=== PATIENT | female | born 1975 | race Two or more races ===

== ENCOUNTER 2018-10-09 11:16 | Inpatient (IN) | payer OTHER ==
[~2018-10-09] VITALS: Ht 165.1 cm; Wt 67.8 kg
[2018-10-09] MEDS ORDERED: NITROGLYCERIN 0.4 MG SL TAB SL PRN (12:15)
[2018-10-09] MEDS ORDERED: MORPHINE SULF INJ 2 MG/ML SYRINGE 1ML IV PRN (12:15)
[2018-10-09] MEDS ORDERED: ONDANSETRON HCL 4 MG/2 ML VIAL IV PRN (12:15)
[2018-10-09] MEDS ORDERED: ENOXAPARIN SOD 30 MG/0.3 ML SYRINGE SC ONE (12:45)
[2018-10-09] MEDS: MORPHINE SULFATE 4 MG/ML SYR/VIAL IV PRN (13:25)
[2018-10-09 13:46] LABS: Basophils # (auto) 0 uL; Basophils % (auto) 0.5 % (0.0-2.0); Eosinophils # (auto) 0 uL; Eosinophils % (auto) 0.1 % (0.0-7.0); Hematocrit 42.1 % (36.0-46.0); Hemoglobin 14.3 g/dL (12.2-16.2); Lymphocytes # (auto) 1.5 uL; Mean Corpuscular Hemoglobin 28.4 pg (28.0-32.0); Mean Corpuscular Volume 83.3 fL (80.0-100.0); Monocytes # (auto) 0.5 uL; Monocytes % (auto) 5.7 % (0.0-12.0); Neutrophils # (auto) 6.7 uL; Neutrophils % (auto) 76.7 % (37.0-80.0); Nucleated Red Blood Cells % 0.1 %; Platelet Count (auto) 201 10^3/uL (140-450); Red Blood Cells 5.05 10^6/uL (4.0-5.20); Red Cell Distribution Width 12.5 % (11.8-14.3); White Blood Cell 8.7 10^3/uL (4.4-10.8)
[2018-10-09 14:00] LABS: Albumin 4.1 g/dL (3.4-5.0); BUN/Creatinine Ratio 13.6; Calcium 8.7 mg/dL (8.5-10.1); Potassium 4.1 mmol/L (3.5-5.1)
[2018-10-09 14:02] LABS: Bilirubin, Total 0.6 mg/dL (0.2-1.0); Total Protein 7.6 g/dL (6.4-8.2)
[2018-10-09 14:07] LABS: INR 1.02 (0.9-1.15); Partial Thromboplastin Time 28.2 sec (23.64-32.05)
[2018-10-09 15:47] VITALS: BP 100/68
--- NOTE | 2018-10-09 16:20 | NUR ---
NON-VIOLENT OFFENDER- NO OFFICER PRESENT RECEIVED NOTICE THAT THE PATIENT WAS A LOW LEVEL/NON-VIOLENT OFFENDER AND THE FACILITY HAS REMOVE THE SECURITY FROM THE PATIENTS ROOM. THE PATIENT IS TO CALL AND CHECK IN TO THE FACILITY AT 0700 AND 1900 DURING HER STAY. UPON DISCHARGE, THE FACILITY WILL SEND OFFICERS TO PICK THE PATIENT UP AND TAKE HER BACK TO THE FACILITY. PAP[facility] WORK PL[facility] IN THE PATIENTS CHART. [employer] ATTENDANT NOTIFIED.
--- NOTE | 2018-10-09 16:50 | NUR ---
MED/SURG admit from [facility] admitted to MED/SURG unit after SBAR received. Patient oriented to KAMLA EVANS RN primary RN, unit, room, bed, and unit policies regarding patient care and visiting hours. Pt rates pain at a 4/10 but denies the need for pain medications. No s/s of distress or SOB. Encouraged to call if they need something. All questions and concerns addressed, patient verbalized understanding. Addendum: 10/09/18 at 1805 by KAMLA EVANS RN RN INCORRECT TIME. PATIENT ARRIVED TO FLOOR AT 1550
[2018-10-09 17:00] VITALS: BP 107/64
--- NOTE | 2018-10-09 19:30 | NUR ---
Opening shift note Patient in bed watching tv alert and oriented x 4, verbally coherent able to make needs known. Patient's respiration even and unlabored, denies pain or any discomfort at this time. Plan of care discussed, patient verbalized understanding. All needs attended, will continue to monitor.
--- NOTE | 2018-10-09 20:54 | NUR ---
UA sample obtained, sent to lab via bullet.
--- NOTE | 2018-10-09 21:07 | NUR ---
Received report from CAITLYN Dey and assumed care of patient. Patient awake , alert and oriented. No s/s of distress and pain at this time. Instructed patient to call for assist if needed and verbalized understanding. Will continue to monitor.
--- NOTE | 2018-10-09 21:15 | NUR ---
Received instruction from charge nurse, transfer patient from room 285B to 236. Patient transferred via gurney/ bed with 2 assist. Report given to nurse. Patient in stable condition.
[2018-10-09 21:30] VITALS: BP 103/60
[2018-10-09 21:56] VITALS: BP 95/64
[2018-10-09] MEDS: ZOLPIDEM TARTRATE 5 MG TAB PO SCH (22:14)
--- NOTE | 2018-10-10 01:25 | NUR ---
Rounds: Patient seen sleeping , appears not in pain. RR even and unlabored.Will continue to monitor.
[2018-10-10 05:44] VITALS: BP 102/66
--- NOTE | 2018-10-10 06:00 | NUR ---
Patient assisted to bedside commode.
[2018-10-10] MEDS: MORPHINE SULFATE 4 MG/ML SYR/VIAL IV PRN (06:30)
--- NOTE | 2018-10-10 07:30 | NUR ---
Opening Shift Note Assumed care of patient, awake and alert. No S/S of distress/SOB. Pain management discussed with patient. Instructed on POC and to call for assist PRN, will continue to monitor for changes Q1hr and PRN.
[2018-10-10 08:00] VITALS: BP 97/69
--- NOTE | 2018-10-10 08:45 | NUR ---
PATIENT OF UNIT TO PROCEDURE.
[2018-10-10] MEDS ORDERED: ceFAZolin 1GM/50ML 50 ML IV ONE ×2 (08:54→09:34)
[2018-10-10] MEDS ORDERED: MEPERIDINE HCL (25 MG/ML) 1ML VIAL ONE ×2 (09:36→10:15)
[2018-10-10] MEDS ORDERED: fentaNYL CITRATE 100 MCG/2 ML VL ONE (09:37)
[2018-10-10] MEDS ORDERED: BUPIVACAINE W/ EPINEPH 0.25% INJ 50ML MDV ONE (09:37)
[2018-10-10] MEDS ORDERED: LIDOCAINE 1% HCL (LOCAL ANESTH.) INJ 20ML MDV ONE (09:37)
[2018-10-10] MEDS ORDERED: MIDAZOLAM HCL 1MG/1ML-2 ML VIAL ONE (09:37)
[2018-10-10] MEDS ORDERED: BUPIVACAINE 0.25% INJ 50ML VIAL ONE (09:37)
[2018-10-10] MEDS ORDERED: KETOROLAC TROMETH 30 MG/ML 1ML VIAL IV ONE (09:45)
[2018-10-10] MEDS ORDERED: LABETALOL HCL 5 MG/ML 4ML SYRINGE IV PRN (09:45)
[2018-10-10] MEDS ORDERED: HYDROmorphone HCL 2 MG/ML VL IV PRN (09:45)
[2018-10-10] MEDS ORDERED: ONDANSETRON HCL 4 MG/2 ML VIAL IV PRN (09:45)
[2018-10-10] MEDS ORDERED: MORPHINE SULFATE 4 MG/ML SYR/VIAL IV PRN (09:45)
[2018-10-10] MEDS ORDERED: ePHEDrine SULFATE 50 MG/ML AMP IV PRN (09:45)
[2018-10-10] MEDS ORDERED: MIDAZOLAM HCL 1MG/1ML-2 ML VIAL IV PRN (09:45)
[2018-10-10] MEDS ORDERED: PROPOFOL 10 MG/ML 20 ML IV ONE (09:48)
[2018-10-10] MEDS ORDERED: DexAMETHasone SOD PHOS 10MG/1ML VIAL INJ ONE (09:48)
[2018-10-10] MEDS ORDERED: ENOXAPARIN SOD 30 MG/0.3 ML SYRINGE SC SCH (10:00)
[2018-10-10] MEDS ORDERED: PHENYLEPHRINE HCL 10 MG/ML VL ONE (10:07)
[2018-10-10] MEDS ORDERED: KETOROLAC TROMETH 30 MG/ML 1ML VIAL ONE (10:16)
[2018-10-10] MEDS ORDERED: VANCOMYCIN HCL 1000 MG VL ONE (10:36)
[2018-10-10] MEDS ORDERED: HYDROcodone-ACET 5/325MG TAB PO PRN ×2 (11:30)
--- NOTE | 2018-10-10 11:45 | NUR ---
PATIENT BACK TO ROOM AFTER SURGERY COMPLETED. NO COMPLICATIONS REPORTED. PATIENT IS CURRENTLY SLEEPING. NO SIGNS OF DISTRESS NOTED. WILL KEEP MONITORING PATIENT WITH FREQUENT ROUNDING AND ENCOURAGING USE OF CALL LIGHT.
[2018-10-10] MEDS: SODIUM CHLOR 0.9% PF (SALINE LOCK) 10ML VIAL/SYR IV SCH ×2 (13:43→21:42)
[2018-10-10] MEDS: ceFAZolin 1GM/50ML 50 ML IV SCH ×3 (13:43→23:23)
[2018-10-10] MEDS: LACTATED RINGER'S 1,000 ML IV SCH ×2 (13:43→21:15)
[2018-10-10 17:00] VITALS: BP 110/69
--- NOTE | 2018-10-10 19:26 | NUR ---
called to check in with facility. affirmed patient is still here. number to call is on [facility] application in chart. [phone]
[2018-10-10 20:00] VITALS: BP 92/57
--- NOTE | 2018-10-10 20:00 | NUR ---
Opening Shift Note Assumed care of patient, awake and alert. No S/S of distress/SOB or pain. Instructed on POC and to call for assist PRN, will continue to monitor for changes Q1hr and PRN.
[2018-10-10] MEDS: ZOLPIDEM TARTRATE 5 MG TAB PO SCH (21:40)
[2018-10-10 22:29] VITALS: BP 92/57
[2018-10-11 05:51] VITALS: BP 110/65
[2018-10-11] MEDS: SODIUM CHLOR 0.9% PF (SALINE LOCK) 10ML VIAL/SYR IV SCH ×3 (06:08→22:03)
[2018-10-11 06:09] LABS: Hematocrit 38.9 % (36.0-46.0); Hemoglobin 13.3 g/dL (12.2-16.2)
[2018-10-11 06:18] LABS: Potassium 3.9 mmol/L (3.5-5.1)
[2018-10-11 06:32] LABS: Albumin 3.2 g/dL (3.4-5.0); BUN/Creatinine Ratio 18.4; Bilirubin, Total 0.5 mg/dL (0.2-1.0); Total Protein 6.4 g/dL (6.4-8.2)
[2018-10-11] MEDS: LACTATED RINGER'S 1,000 ML IV SCH ×2 (06:51→17:09)
--- NOTE | 2018-10-11 06:58 | NUR ---
Called the [facility] and informed the patient is still in the hospital.
[2018-10-11] MEDS ORDERED: ceFAZolin 1GM/50ML 50 ML IV ONE (07:00)
--- NOTE | 2018-10-11 07:07 | NUR ---
Report given to Shelly [place], patient is resting no distress.
[2018-10-11 08:00] VITALS: BP 96/62
[2018-10-11 09:06] VITALS: BP 96/62
[2018-10-11] MEDS: ENOXAPARIN SOD 40 MG/0.4 ML SYRINGE SC SCH (09:46)
[2018-10-11 13:00] VITALS: BP 104/67
[2018-10-11] MEDS: MORPHINE SULFATE 4 MG/ML SYR/VIAL IV PRN (14:08)
[2018-10-11 17:05] VITALS: BP 105/69
[2018-10-11] MEDS: ZOLPIDEM TARTRATE 5 MG TAB PO SCH (21:35)
[2018-10-11 21:57] VITALS: BP 108/70
[2018-10-12] MEDS: LACTATED RINGER'S 1,000 ML IV SCH ×3 (03:15→23:15)
[2018-10-12 05:32] VITALS: BP 106/68
[2018-10-12 05:53] LABS: Hematocrit 39.5 % (36.0-46.0); Hemoglobin 13.4 g/dL (12.2-16.2)
[2018-10-12] MEDS: SODIUM CHLOR 0.9% PF (SALINE LOCK) 10ML VIAL/SYR IV SCH ×3 (06:11→21:33)
--- NOTE | 2018-10-12 07:03 | NUR ---
Called [facility], informed patient is still in the hospital.
--- NOTE | 2018-10-12 07:10 | NUR ---
Report given to Shelly Rosenberg, patient is resting no distress.
[2018-10-12 09:00] VITALS: BP 110/74
--- NOTE | 2018-10-12 09:00 | NUR ---
Patient walking on the hallway with walker with Enrique from [facility].
[2018-10-12] MEDS: ENOXAPARIN SOD 40 MG/0.4 ML SYRINGE SC SCH (09:49)
--- NOTE | 2018-10-12 09:50 | NUR ---
Patient denies pain at this time.
[2018-10-12 13:00] VITALS: BP 110/68
--- NOTE | 2018-10-12 14:20 | NUR ---
Patient in bed, no acute distress noted, no complaints of pain.
--- NOTE | 2018-10-12 16:30 | NUR ---
Patient in bed, no complaints of pain, no acute distress noted.
[2018-10-12 17:00] VITALS: BP 107/66
--- NOTE | 2018-10-12 17:57 | NUR ---
Patient in bed, awake, no acute distress noted. No complaints of pain.
--- NOTE | 2018-10-12 19:00 | NUR ---
Patient in bed, awake, oriented x4. No acute distress noted.
--- NOTE | 2018-10-12 20:45 | NUR ---
assumed care, dressing on rt. leg dry and intact, elevated on pillow, no c/o pain, no sob.
[2018-10-12] MEDS: ZOLPIDEM TARTRATE 5 MG TAB PO SCH (21:33)
[2018-10-12 21:54] VITALS: BP 116/66
[2018-10-13 05:05] VITALS: BP 101/72
[2018-10-13] MEDS: SODIUM CHLOR 0.9% PF (SALINE LOCK) 10ML VIAL/SYR IV SCH ×2 (06:03→14:00)
[2018-10-13] MEDS: LACTATED RINGER'S 1,000 ML IV SCH ×2 (07:19→18:57)
--- NOTE | 2018-10-13 07:50 | NUR ---
Patient in bed, awake, oriented x4, no acute distress noted. Ko wrap bandage on the right lower extremity clean, dry and intact.
[2018-10-13 08:00] VITALS: BP 107/62
--- NOTE | 2018-10-13 09:40 | NUR ---
Patient sitting in chair, for physical therapy. No acute distress noted. Patient denies pain.
[2018-10-13] MEDS: ENOXAPARIN SOD 40 MG/0.4 ML SYRINGE SC SCH (09:43)
--- NOTE | 2018-10-13 11:17 | NUR ---
Nutrition Assessment Notes please see attached link for complete assessment Est. Needs BW (67 kg): 2218-9334 kcal (23-25 kcal/kgBW), 67-73 gms pro (1.0-1.1 gms/kgBW). Will continue to monitor pertinent labs and reassess nutrient need prn Addendum: 10/13/18 at [address] Amended: Links added.
[2018-10-13 12:00] VITALS: BP 100/64
--- NOTE | 2018-10-13 13:35 | NUR ---
Called Dr. Camacho office regarding the patient's discharge order. Spoke with Sarah. Waiting for MD to call back.
--- NOTE | 2018-10-13 14:40 | NUR ---
Dr. Camacho called back. confirmed that patient is for discharge to [facility] today.
--- NOTE | 2018-10-13 15:00 | NUR ---
Informed the patient that she is for discharge to [facility] today. Will call [facility].
[2018-10-13 15:54] VITALS: BP 107/62
[2018-10-13 16:05] VITALS: BP 107/62
--- NOTE | 2018-10-13 16:15 | NUR ---
Called [facility] ([phone]), phone keeps ringing, no answer. Will call again.
--- NOTE | 2018-10-13 16:25 | NUR ---
Called [facility] ([phone]; [phone]; [phone]) multiple times, phone keeps ringing, no answer.
[2018-10-13 16:53] VITALS: BP 109/67
--- NOTE | 2018-10-13 16:58 | NUR ---
Spoke with Lt. Judge that [facility] not answering the phone calls. Lt. 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
--- NOTE | 2018-10-13 18:45 | NUR ---
Lt. Mark called the [facility] again. Patient to be picked up in an hour.
--- NOTE | 2018-10-13 19:25 | NUR ---
PT D/C Pt was d/c from unit via wheelchair accompanied by a guard. Pt's leg is currently wrapped in an TRACY bandage. Pt is in no distress or pain. Pt's IV is removed as well as ID band. Pt was instructed and provided education regarding D/C and is aware of any f/u appointments needed to be made.
== END 2018-10-13 19:25 | DRG 494 ==
LOC: ER 11:16 → EEVIPCON 11:16 → OVERFLOW 11:17 → WEST WING 15:52 → EAST 21:07
PROVIDERS: ADMIT Internal Medicine; ATTEND Internal Medicine
PROC: 0QSJ04Z Reposition Right Fibula with Internal Fixation Device, Open Approach (ICD-10-PCS; 2018-10-10)
PROC: 0QUJ0JZ Supplement Right Fibula with Synthetic Substitute, Open Approach (ICD-10-PCS; 2018-10-10)
PROC: BW1C1ZZ Fluoroscopy of Lower Extremity using Low Osmolar Contrast (ICD-10-PCS; 2018-10-10)
PROC: 0QSG04Z Reposition Right Tibia with Internal Fixation Device, Open Approach (ICD-10-PCS; principal; 2018-10-10 09:45)
DX: S82.251A Displaced comminuted fracture of shaft of right tibia, initial encounter for closed fracture (principal); S82.451A Displaced comminuted fracture of shaft of right fibula, initial encounter for closed fracture; M19.90 Unspecified osteoarthritis, unspecified site; Z83.3 Family history of diabetes mellitus; Z98.51 Tubal ligation status; V09.9XXA Pedestrian injured in unspecified transport accident, initial encounter; Y93.89 Activity, other specified; Y92.89 Other specified places as the place of occurrence of the external cause; Y99.8 Other external cause status
CPT/HCPCS: 36415; 71045; 73590; 73600; 73700; 76001; 80053; 81025; 85014; 85018; 85025; 85610; 85730; 86850; 86900; 86901; 87081; 93005; 96374; 97110; 97116; 97163; 97530; G0378; J0690; J1100; J1885; J2001; J2250; J2405; J2704; J3490